=== PATIENT | male | born 1995 | race Caucasian/White ===

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

== ENCOUNTER 2017-01-17 00:35 | Emergency (ER) | payer MEDICAID ==
[~2017-01-17] VITALS: Ht 180.3 cm; Wt 70.0 kg
[2017-01-17 00:38] VITALS: BP 137/78; TEMP 98.4
[2017-01-17 01:55] VITALS: PULSE 67
== END 2017-01-17 01:55 | disposition home or self-care (01) ==
LOC: COL.ER 00:35
DX: T23.002A Burn of unspecified degree of left hand, unspecified site, initial encounter (principal); T23.001A Burn of unspecified degree of right hand, unspecified site, initial encounter; F17.200 Nicotine dependence, unspecified, uncomplicated; Z77.22 Contact with and (suspected) exposure to environmental tobacco smoke (acute) (chronic); X15.8XXA Contact with other hot household appliances, initial encounter

== ENCOUNTER 2017-06-22 01:50 | Emergency (ER) | payer MEDICAID ==
[~2017-06-22] VITALS: Ht 180.3 cm; Wt 73.6 kg
[2017-06-22 01:56] VITALS: TEMP 98.8
[2017-06-22 02:12] VITALS: BP 116/66; PULSE 80
== END 2017-06-22 02:13 | disposition home or self-care (01) ==
LOC: COL.ER 01:50
DX: L73.9 Follicular disorder, unspecified (principal)

== ENCOUNTER 2017-08-11 17:54 | Emergency (ER) | payer MEDICAID ==
[~2017-08-11] VITALS: Ht 180.3 cm; Wt 70.5 kg
[2017-08-11 18:05] VITALS: BP 136/70; TEMP 97.9
[2017-08-11 19:14] LABS: BASO % 0.5 % (0.0-2.0); EOS # 0.1 (0.0-0.7); GRAN # 3.1 (1.4-6.5); GRAN % 38.8 % (42.2-75.2); HEMATOCRIT 47.7 % (36.0-47.0); HEMOGLOBIN 16.8 g/dl (12.5-16.1); LYMPH # 4.1 (1.2-3.4); LYMPH % 50.9 % (20.0-51.0); MEAN CELL VOLUME 86 fl (80.0-95.0); MEAN CORPUSCULAR HEMOGLOBIN 30 pg (26.0-32.0); MEAN CORPUSCULAR HGB CONC 35 g/dl (33.0-37.0); MEAN PLATELET VOLUME 11.4 fl (7.4-10.4); MONO # 0.7 (0.1-0.6); MONO % 8.6 % (1.7-9.3); PLATELET COUNT 176 K/mm3 (130-400); RED BLOOD COUNT 5.53 M/mm3 (4.20-5.60); REDCELL DISTRIBUTION WIDTH-CV 12.8 % (11.5-14.5)
[2017-08-11 19:47] LABS: ALANINE AMINOTRANSFERASE 35 U/L (21-72); ALBUMIN 4.1 gm/dL (3.5-5.0); ALKALINE PHOSPHATASE 83 U/L (50-136); ANION GAP 12 mmol/L (7-16); AST,SGOT 28 U/L (15-37); BILIRUBIN,TOTAL 0.3 mg/dL (0.0-1.0); BLOOD UREA NITROGEN 9 mg/dL (9-20); CARBON DIOXIDE 26 mmol/L (22-30); CHLORIDE 104 mmol/L (98-107); CREATININE, serum 0.94 mg/dL (0.66-1.25); GLUCOSE 93 mg/dL (74-106); SODIUM 142 mmol/L (137-145); TOTAL PROTEIN 7.8 gm/dL (6.4-8.2)
[2017-08-11 20:00] LABS: TROPONIN-I < 0.012 ng/mL (0.000-0.034)
[2017-08-11 20:15] VITALS: PULSE 84
== END 2017-08-11 20:16 | disposition home or self-care (01) ==
LOC: COL.ER 17:54
PROVIDERS: Emergency Medicine; Nurse Practitioner
DX: R07.9 Chest pain, unspecified (principal); Z88.0 Allergy status to penicillin
CPT/HCPCS: J7030

== ENCOUNTER 2017-08-27 19:15 | Emergency (ER) | payer MEDICAID ==
[~2017-08-27] VITALS: Ht 180.3 cm; Wt 68.2 kg
[2017-08-27 19:16] VITALS: BP 127/73; PULSE 67; TEMP 98.6
== END 2017-08-27 19:45 | disposition home or self-care (01) ==
LOC: COL.ER 19:15
DX: S20.362A Insect bite (nonvenomous) of left front wall of thorax, initial encounter (principal)

== ENCOUNTER 2017-09-16 22:41 | Emergency (ER) | payer MEDICAID ==
[~2017-09-16] VITALS: Ht 180.3 cm; Wt 79.1 kg
[2017-09-16 22:47] VITALS: BP 129/78; TEMP 98.4
[2017-09-16 23:11] LABS: COLLECTION METHOD CLEAN CATCH
[2017-09-16 23:16] LABS: PH 7 (5-8); SQUAMOUS EPITHELIAL None Seen /hpf; URINE APPEARANCE Clear; URINE BACTERIA None Seen /hpf; URINE BILIRUBIN Negative (NEGATIVE); URINE BLOOD Negative (NEGATIVE); URINE COLOR Yellow; URINE GLUCOSE Negative (NEGATIVE); URINE KETONE Negative (NEGATIVE); URINE LEUKOCYTE ESTERASE Negative (NEGATIVE); URINE NITRATE Negative (NEGATIVE); URINE PROTEIN(semi-quant) Negative (NEGATIVE); URINE UROBILINOGEN Negative (NEGATIVE)
[2017-09-17 00:39] VITALS: PULSE 64
== END 2017-09-17 00:39 | disposition home or self-care (01) ==
LOC: COL.ER 22:41
PROVIDERS: Emergency Medicine
DX: N34.2 Other urethritis (principal); Z88.0 Allergy status to penicillin
CPT/HCPCS: J0696

== ENCOUNTER 2019-02-16 02:03 | Emergency (ER) | payer MEDICAID ==
[~2019-02-16] VITALS: Ht 180.3 cm; Wt 78.5 kg
[2019-02-16 02:48] LABS: BASO # 0.1 (0.0-0.2); BASO % 0.6 % (0.0-2.0); EOS # 0.1 (0.0-0.7); EOS % 1.4 % (0-4.0); GRAN # 3.3 (1.4-6.5); HEMATOCRIT 46.1 % (42.0-52.0); HEMOGLOBIN 15.9 g/dl (13.5-18.0); LYMPH # 3.7 (1.2-3.4); LYMPH % 47.5 % (20.0-51.0); MEAN CELL VOLUME 90 fl (80.0-100.0); MEAN CORPUSCULAR HEMOGLOBIN 31 pg (27.0-31.0); MEAN CORPUSCULAR HGB CONC 35 g/dl (33.0-37.0); MEAN PLATELET VOLUME 10.9 fl (7.4-10.4); MONO # 0.7 (0.1-0.6); MONO % 8.4 % (1.7-9.3); PLATELET COUNT 164 K/mm3 (130-400); RED BLOOD COUNT 5.12 M/mm3 (4.20-5.60); REDCELL DISTRIBUTION WIDTH-CV 12.8 % (11.5-14.5)
[2019-02-16 03:34] LABS: ALANINE AMINOTRANSFERASE 24 U/L (21-72); ALBUMIN 4.6 gm/dL (3.5-5.0); ALKALINE PHOSPHATASE 68 U/L (50-136); ANION GAP 9 mmol/L (7-16); AST,SGOT 25 U/L (15-37); BILIRUBIN,TOTAL 0.2 mg/dL (0.0-1.0); BLOOD UREA NITROGEN 20 mg/dL (9-20); CALCIUM 9.3 mg/dL (8.4-10.2); CARBON DIOXIDE 29 mmol/L (22-30); CHLORIDE 104 mmol/L (98-107); GLUCOSE 100 mg/dL (74-106); POTASSIUM 4.1 mmol/L (3.4-5.0); SODIUM 142 mmol/L (137-145); TOTAL PROTEIN 7.6 gm/dL (6.4-8.2)
[2019-02-16 03:53] LABS: TROPONIN-I < 0.012 ng/mL (0.000-0.035)
[2019-02-16 04:02] VITALS: BP 122/76; PULSE 79; TEMP 98.4
== END 2019-02-16 04:04 | disposition home or self-care (01) ==
LOC: COL.ER 02:03
PROVIDERS: Nurse Practitioner
DX: R07.89 Other chest pain (principal); Z88.0 Allergy status to penicillin
CPT/HCPCS: J1885

== ENCOUNTER 2019-02-25 15:07 | Emergency (ER) | payer MEDICAID ==
[~2019-02-25] VITALS: Ht 180.3 cm; Wt 80.5 kg
[2019-02-25 16:59] LABS: COLLECTION METHOD CLEAN CATCH
[2019-02-25 17:10] LABS: PH 6 (5-8); SQUAMOUS EPITHELIAL None Seen /hpf; URINE APPEARANCE Clear; URINE BACTERIA None Seen /hpf; URINE BILIRUBIN Negative (NEGATIVE); URINE BLOOD Negative (NEGATIVE); URINE COLOR Yellow; URINE GLUCOSE Negative (NEGATIVE); URINE KETONE Negative (NEGATIVE); URINE LEUKOCYTE ESTERASE Negative (NEGATIVE); URINE NITRATE Negative (NEGATIVE); URINE PROTEIN(semi-quant) Negative (NEGATIVE); URINE RBC None Seen /hpf; URINE UROBILINOGEN Negative (NEGATIVE)
[2019-02-25 17:28] VITALS: BP 122/72; PULSE 63; TEMP 98.1
== END 2019-02-25 17:28 | disposition home or self-care (01) ==
LOC: COL.ER 15:07
PROVIDERS: Physician Assistant
DX: M54.5 Low back pain (principal); R07.89 Other chest pain; Z88.0 Allergy status to penicillin

== ENCOUNTER 2019-06-15 19:46 | Emergency (ER) | payer MEDICAID | END 2019-06-15 20:15 | disposition left against medical advice (07) | LOC: COL.ER 19:46 | DX: Z72.89 Other problems related to lifestyle (principal) ==

== ENCOUNTER 2019-06-17 16:30 | Emergency (ER) | payer MEDICAID ==
[~2019-06-17] VITALS: Ht 180.3 cm; Wt 80.5 kg
[2019-06-17 16:36] VITALS: TEMP 98.4
[2019-06-17 19:20] VITALS: BP 112/76; PULSE 61
== END 2019-06-17 19:20 | disposition home or self-care (01) ==
LOC: COL.ER 16:30
DX: J06.9 Acute upper respiratory infection, unspecified (principal); Z88.1 Allergy status to other antibiotic agents

== ENCOUNTER 2020-12-21 08:11 | Emergency (ER) | payer MEDICAID ==
[~2020-12-21] VITALS: Ht 180.3 cm; Wt 79.1 kg
[2020-12-21 08:32] VITALS: TEMP 97.9
[2020-12-21 09:38] VITALS: BP 130/81; PULSE 61
== END 2020-12-21 09:38 | disposition home or self-care (01) ==
LOC: COL.ER 08:11
DX: B34.9 Viral infection, unspecified (principal); J45.909 Unspecified asthma, uncomplicated

== ENCOUNTER 2021-04-15 18:27 | Emergency (ER) | payer MEDICAID ==
[~2021-04-15] VITALS: Ht 180.3 cm; Wt 79.5 kg
[2021-04-15 20:39] LABS: COLLECTION METHOD CLEAN CATCH
[2021-04-15 20:54] LABS: MUCOUS Present (NOT PRESENT); PH 6 (5-8); SQUAMOUS EPITHELIAL None Seen /hpf (0-10); URINE APPEARANCE Clear (CLEAR/HAZY); URINE BACTERIA None Seen /hpf (NONE SEEN); URINE BILIRUBIN Negative (NEGATIVE); URINE BLOOD Negative (NEGATIVE); URINE COLOR Yellow (YELLOW); URINE GLUCOSE Negative (NEGATIVE); URINE KETONE Negative (NEGATIVE); URINE LEUKOCYTE ESTERASE Trace (NEGATIVE); URINE NITRATE Negative (NEGATIVE); URINE PROTEIN(semi-quant) Negative (NEGATIVE); URINE UROBILINOGEN Negative (NEGATIVE)
[2021-04-15 23:47] VITALS: BP 135/85; PULSE 68; TEMP 98.4
== END 2021-04-15 23:47 | disposition home or self-care (01) ==
LOC: COL.ER 18:27
PROVIDERS: Personal Emergency Response Attendant
DX: A54.9 Gonococcal infection, unspecified (principal); A74.9 Chlamydial infection, unspecified
CPT/HCPCS: J0696

== ENCOUNTER 2021-09-15 15:09 | Emergency (ER) | payer MEDICAID ==
[~2021-09-15] VITALS: Ht 180.3 cm; Wt 85.0 kg
[2021-09-15 16:03] VITALS: BP 116/80; PULSE 64; TEMP 98.5
== END 2021-09-15 17:45 | disposition home or self-care (01) ==
LOC: COL.ER 15:09
DX: A54.09 Other gonococcal infection of lower genitourinary tract (principal); Z88.1 Allergy status to other antibiotic agents; Z28.310 Unvaccinated for COVID-19; Z72.51 High risk heterosexual behavior
CPT/HCPCS: J0696